=== PATIENT | male | born 1980 | race Hispanic/Latino ===

== ENCOUNTER 2021-02-04 13:00 | Emergency (ER) | payer SELFPAY ==
[~2021-02-04] VITALS: Ht 175.3 cm; Wt 90.7 kg
[2021-02-04] MEDS ORDERED: METHOCARBAMOL500 MG PO (14:56)
[2021-02-04] MEDS ORDERED: MELOXICAM7.5 MG PO (14:56)
--- NOTE | 2021-02-05 17:13 | EKG ---
[facility] [address] [place], [place] [address] Signed Normal sinus rhythm Normal ECG No previous ECGs available Confirmed by BALJEET MARLOW MD ([id number]) on 02/05/2021 5:13:41 PM Electronically Signed By: BALJEET MARLOW MD 02/05/21 1713 PATIENT NAME: PIO PEACE Electrocardiogram DATE OF : 78 PHYSICIAN: BALJEET MARLOW MD REPORT #: [id number] REPORT IS CONFIDENTIAL AND NOT TO BE RELEASED WITHOUT AUTHORIZATION
== END 2021-02-04 15:00 | disposition home or self-care (01) ==
LOC: ED 13:00
DX: S29.012A Strain of muscle and tendon of back wall of thorax, initial encounter (principal); X58.XXXA Exposure to other specified factors, initial encounter
CPT/HCPCS: 71045; 80053; 84484; 85025; 93005; 93010; 96374; 99284-25; J1885

== ENCOUNTER 2024-03-03 16:46 | Emergency (ER) | payer OTHER ==
[~2024-03-03] VITALS: Ht 175.3 cm; Wt 98.6 kg
[~2024-03-03 16:46] MED LIST: MELOXICAM7.5 MG PO; METHOCARBAMOL500 MG PO
[2024-03-03 17:36] LABS: BASOPHILS 1.3 % (0-2); EOSINOPHILS 3.8 % (0-6); HEMATOCRIT 40.6 % (35.0-50.0); HEMOGLOBIN 13.8 g/dL (12.0-18.0); LYMPHOCYTES 30.3 % (24-44); MCH 31.2 (27-36); MCHC 34.1 g/dl (30-36); MCV 91.6 fl (81-99); MONOCYTES 7.7 % (0-12); NEUTROPHILS 56.9 % (39-80); PLATELET COUNT 269 K/uL (140-440); RBC 4.43 M/ul (4.3-5.7); RDW 13.2 (10.5-15.0)
[2024-03-03 17:54] LABS: ALBUMIN 3.7 g/dL (3.4-5.0); ALBUMIN/GLOBULIN RATIO 1.09 (1.1-2.4); ANION GAP 10.9 (7-21); BILIRUBIN, TOTAL 0.5 ng/dL (0.2-1.0); CALCIUM 8.6 mg/dL (8.5-10.1); CREATININE, SERUM 1.1 mg/dL (0.70-1.30); POTASSIUM 3.9 mmol/L (3.5-5.1); PROTEIN, TOTAL 7.1 g/dL (6.4-8.2)
[2024-03-03] MEDS ORDERED: SODIUM CHLORIDE 0.9% 1,000 ML IV ONE (18:45)
[2024-03-03 19:36] VITALS: BP 136/94
== END 2024-03-03 19:36 | disposition home or self-care (01) ==
LOC: ED 16:46
PROVIDERS: Emergency Medicine
DX: R10.32 Left lower quadrant pain (principal); R14.0 Abdominal distension (gaseous); R23.8 Other skin changes; F17.200 Nicotine dependence, unspecified, uncomplicated
CPT/HCPCS: 36415; 74177; 80053; 83690; 85025; 99284-25; J7030; Q9967